=== PATIENT | female | born 1940 | race Caucasian/White ===

== ENCOUNTER 2019-01-16 10:45 | Outpatient (CLI) | payer OTHER | END 2019-01-16 15:00 | disposition home or self-care (01) | LOC: LAB 10:45 | DX: N20.0 Calculus of kidney (principal) ==

== ENCOUNTER 2019-01-23 09:24 | Outpatient (CLI) | payer OTHER | END 2019-01-23 09:26 | disposition home or self-care (01) | LOC: TOM 09:24 | DX: C64.2 Malignant neoplasm of left kidney, except renal pelvis (principal) | CPT/HCPCS: 74178; Q9965 ==